=== PATIENT | male | born 1960 | race Caucasian/White ===

== ENCOUNTER 2021-02-12 19:43 | Emergency (ER) | payer OTHER ==
[2021-02-12 20:54] LABS: BASOPHIL 0.4 % (0-2); EOSINOPHIL 0.8 % (0-5); HGB 15.5 g/dl (13.2-18.0); LYMPHOCYTE 26.7 % (15-48); MCH 31.2 pg (25.0-31.0); MCHC 32.3 g/dL (32.0-36.0); MCV 96.6 fL (78.0-100.0); MONOCYTE 8.1 % (0-12); MPV 10.6 fL (6.0-9.5); NEUTROPHIL 63.7 % (41-80); NRBC 0; PLT 275 K/uL (150-400); RBC 4.97 M/uL (4.70-6.00); RDW 13.6 % (11.5-14.0); WBC 11.2 K/uL (4.0-10.5)
[2021-02-12 21:09] LABS: ALBUMIN 3.7 g/dL (3.4-5.0); BILIRUBIN - TOTAL 1.3 mg/dL (0.2-1.0); BUN/CREAT RATIO (CALC) 19.3 RATIO; CREATININE 1.76 mg/dL (0.67-1.17); GLOBULIN (CALCULATION) 3.4 g/dL; POTASSIUM 5.1 mmol/L (3.5-5.1); TOTAL PROTEIN 7.1 g/dL (6.4-8.2)
[2021-02-12 21:11] LABS: LACTIC ACID 1.9 mmol/L (0.4-1.9)
[2021-02-12 22:24] LABS: BILIRUBIN NEGATIVE (NEGATIVE); BLOOD NEGATIVE Ery/uL (NEGATIVE); CLARITY CLEAR (CLEAR); COLOR YELLOW (YELLOW); GLUCOSE (U) NORMAL (NORMAL); LEUKOCYTES NEGATIVE Leu/uL (NEGATIVE); NITRITE NEGATIVE (NEGATIVE); PROTEIN NEGATIVE (NEGATIVE); SPECIFIC GRAVITY 1.025 (1.001-1.030); UROBILINOGEN 0.2 mg/dL (0.2-1.0); pH 5.5 (5.0-9.0)
== END 2021-02-13 03:30 | disposition other institution (70) ==
LOC: FER 19:43
PROVIDERS: Emergency Medicine Emergency Medical Services
DX: I50.9 Heart failure, unspecified (principal); E86.0 Dehydration; I48.91 Unspecified atrial fibrillation; I25.2 Old myocardial infarction; Z20.822 Contact with and (suspected) exposure to COVID-19
CPT/HCPCS: 36415; 36600; 71045; 80053; 81003; 82803; 83605; 83880; 84145; 84484; 85025; 87040; 87088; 93005; J1250; J1940; J2405; J2543; J2550; J7030; J7040; J7050; U0002